=== PATIENT | female | born 1955 | race Caucasian/White ===

== ENCOUNTER 2023-05-11 08:52 | Observation (INO) ==
--- NOTE | 2023-05-03 14:34 | PAT Medication Instructions ---
Medication Instructions Date of Service May 03, 2023 Home Medications atenolol 25 mg tablet 12.5 mg PO QAM bupropion HCl 100 mg tablet 100 mg PO QAM cholecalciferol (vitamin D3) 50 mcg (2,000 unit) capsule (Vitamin D3) 50 mcg PO QAM diclofenac sodium 1 % topical gel 2 g topical QID diclofenac sodium 50 mg tablet,delayed release 50 mg PO Q8H lisinopril 20 mg tablet 20 mg PO QAM mecobalamin (vitamin B12) 500 mcg chewable tablet 500 mcg PO QAM metformin 500 mg tablet 500 mg PO QAM propylene glycol 1 %-glycerin 0.3 % eye drops (Artificial Tears (glycerin-peg)) 1 drp ophthalmic (eye) DAILY PRN Dry Eyes semaglutide 1 mg/dose (4 mg/3 mL) subcutaneous pen injector (Ozempic) 1 mg subcut WK biotin 10,000 mcg capsule 10,000 mcg PO QAM calcium carbonate 600 mg-vitamin D3 10 mcg (400 unit) tablet (Calcium 600 + D(3)) 1 tab PO DAILY ASK your surgeon for instructions diclofenac sodium 1 % topical gel 2 g topical QID diclofenac sodium 50 mg tablet,delayed release 50 mg PO Q8H STOP taking 2 weeks before surgery biotin 10,000 mcg capsule 10,000 mcg PO QAM STOP taking 7 days before surgery semaglutide 1 mg/dose (4 mg/3 mL) subcutaneous pen injector (Ozempic) 1 mg subcut WK (confirmed with patient on 05/03/23 that last dose prior to surgery will be 05/03/23) DO NOT take the morning of surgery cholecalciferol (vitamin D3) 50 mcg (2,000 unit) capsule (Vitamin D3) 50 mcg PO QAM lisinopril 20 mg tablet 20 mg PO QAM mecobalamin (vitamin B12) 500 mcg chewable tablet 500 mcg PO QAM metformin 500 mg tablet 500 mg PO QAM calcium carbonate 600 mg-vitamin D3 10 mcg (400 unit) tablet (Calcium 600 + D(3)) 1 tab PO DAILY Take morning of surgery With a small sip of water, OTHERWISE NOTHING TO EAT OR DRINK AFTER MIDNIGHT: atenolol 25 mg tablet 12.5 mg PO QAM bupropion HCl 100 mg tablet 100 mg PO QAM propylene glycol 1 %-glycerin 0.3 % eye drops (Artificial Tears (glycerin-peg)) 1 drp ophthalmic (eye) DAILY PRN Dry Eyes (if needed) Take evening before surgery propylene glycol 1 %-glycerin 0.3 % eye drops (Artificial Tears (glycerin-peg)) 1 drp ophthalmic (eye) DAILY PRN Dry Eyes (if needed) Other Notes If you have any questions please call us at [phone] or [phone] or [phone] or [phone]
--- NOTE | 2023-05-06 09:16 | Anesthesiology Consultation ---
Date of Service May 06, 2023 Assessment & Plan (1) Encounter for pre-operative examination: Plan - check BSG am DOS. - Ozempic instructions: Patient takes on (Tuesday). Patient informed at PAT visit to stop 7 days prior to surgery- voiced understanding. Instructed last dose will be: (05/04/23). Patient advised to check with prescriber to see if alternative diabetic management changes recommended while holding Ozempic- if so, patient to call back to PAT to update chart and discuss if any further preop medication instructions needed. - Outpatient joint assessment: Patient is currently scheduled for inpatient pathway. If re-evaluated and patient/surgeon requests outpatient pathway, patient is not recommended candidate for outpatient joint program from anesthesia standpoint. Chart Review Chart Review: Acceptable Risk for Surgery and Patient seen in Pre Admission Testing Teaching & Discussion Pre-Anesthesia Teaching/Discussion Notes: Instructed NPO after midnight before surgery, except medications with 15 cc of water. Medication instructions provided according to the PAT guidelines. History Surgery Operation Date: 05/11/23 08:50 Proposed Procedures p Right Total Knee Arthroplasty - Steven Akers MD Height/Weight Height: 5 ft 1 in Weight: 110 kg Allergies Allergy/AdvReac Type Severity Reaction Status Date / Time sulfamethoxazole Allergy Intermediate Rash Verified 05/03/23 13:35 [From Bactrim] trimethoprim [From Bactrim] Allergy Intermediate Rash Verified 05/03/23 13:35 Medications Home Medications Medication Instructions Recorded Confirmed Last Taken atenolol 25 mg tablet 12.5 mg PO QAM 04/28/23 05/03/23 Unknown bupropion HCl 100 mg tablet 100 mg PO QAM 04/28/23 05/03/23 Unknown cholecalciferol (vitamin D3) 50 50 mcg PO QAM 04/28/23 05/03/23 Unknown mcg (2,000 unit) capsule (Vitamin D3) diclofenac sodium 1 % topical gel 2 g topical QID 04/28/23 05/03/23 Unknown diclofenac sodium 50 mg 50 mg PO Q8H 04/28/23 05/03/23 Unknown tablet,delayed release lisinopril 20 mg tablet 20 mg PO QAM 04/28/23 05/03/23 Unknown mecobalamin (vitamin B12) 500 mcg 500 mcg PO QAM 04/28/23 05/03/23 Unknown chewable tablet metformin 500 mg tablet 500 mg PO QAM 04/28/23 05/03/23 Unknown propylene glycol 1 %-glycerin 0.3 1 drp ophthalmic (eye) DAILY PRN 04/28/23 05/03/23 Unknown % eye drops (Artificial Tears Dry Eyes (glycerin-peg)) semaglutide 1 mg/dose (4 mg/3 mL) 1 mg subcut WK 04/28/23 05/03/23 Unknown subcutaneous pen injector (Ozempic) biotin 10,000 mcg capsule 10,000 mcg PO QAM 05/03/23 05/03/23 Unknown calcium carbonate 600 mg-vitamin 1 tab PO DAILY 05/03/23 05/03/23 Unknown D3 10 mcg (400 unit) tablet (Calcium 600 + D(3)) amino acids (Amino Acid capsule) cap PO 05/06/23 Unknown Past Medical History Medical History (Updated 05/06/23 @ 09:28 by Gisselle Rodriguez PA-C) CKD (chronic kidney disease) stage 3, GFR 30-59 ml/min Cellulitis hx of in legs and venous ulcer to right leg, 2019 > resolved > wears compression stockings now Urinary incontinence just on occasion when standing Depression Cardiac murmur as child History of COVID-15 Feb 2022 > not hospitalized > intermittent residual olfactory nerve of smelling smoke-denies recent episode-follows with PCP Hypertension controlled, stable per pt Diabetes NIDDM Patient denies h/o stroke, seizures, heart attack, heart failure, blood clots/DVTs or blood transfusions. Exercise / Class Metabolic Activity II 4-5 Yardwork/Stairs/Walk up hill (denies chest discomfort or shortness of breath with 1 FOS) Past Family History Family History (Updated 05/06/23 @ 09:30 by Gisselle Rodriguez PA-C) Grandmother (Maternal) Deep vein thrombosis DVTs Coronary heart disease mitral valve replacement Brother Aortic valve disorder suspected aortic stenosis per pt, currently undergoing aortic valve replacement Past Surgical History Surgical History Hx of hernia repair with mesh Hx of bilateral oophorectomy History of cholecystectomy H/O gastric bypass 2006 History of tooth extraction History of tonsillectomy Past Anesthesia History No Hx of Anesthesia Complications and No Family Hx of Anesthesia Complications History of PONV No Hx of PONV and No Hx of Motion Sickness Social History Smoking Status: Never smoker Do You Dip or Chew Tobacco: No Hx Alcohol Use: Yes alcohol intake frequency: holidays/special occasions only Hx Substance Use: No substance use type: does not use Review of Systems Snoring, denies witnessed apneas. Patient denies chest pain, shortness of breath, dyspnea on exertion, reflux, fever, chills, cough, wheezing, or palpitations. Physical Exam Vital Signs Vitals BP 123/75 P 57 TEMP 97.8 SP02 97% on RA RESP 18 Physical Patient resting comfortably in chair in no acute distress, alert and oriented, responding appropriately throughout visit Full cervical extension range of motion without pain TMD 3.5 finger breadths Mallampati Score 2 Dentition: several caps and permanent bridge, denies chipped or loose teeth, or implants Lungs: normal respiratory effort. Good air movement, clear throughout to auscultation, no adventitious breath sounds Cardiac: regular rate and rhythm, no murmurs noted Carotid arteries: negative bruit bilat Lab Results Anesthesia Preop Results Results Anesthesia Widget: WBC 8.66 K/ul (4.8-10.8) 05/06/23 Hgb 13.7 g/dl (12.0-16.0) 05/06/23 Hct 43.7 % (37.0-47.0) 05/06/23 Plt 453 K/uL (130-400) H 05/06/23 Na 142 mmol/L (136-145) 05/06/23 K 4.4 mmol/L (3.5-5.1) 05/06/23 Cl 108 mmol/L (98-107) H 05/06/23 CO2 26 mmol/L (21-32) 05/06/23 BUN 27 mg/dl (6-23) H 05/06/23 Creat 1.06 mg/dl (0.6-1.2) 05/06/23 Glucose Level 101 mg/dl (70-99(Fasting)) H 05/06/23 PT 11.4 Seconds (9.0-12.0) 05/06/23 PTT 30 Seconds (21-31) 05/06/23 INR 1.0 (0.9-1.1) 05/06/23 HA1c 5.8 % (4.5-5.6) H 05/06/23 Blood Type O Positive 05/06/23 Antibody Screen NEGATIVE 05/06/23 Testing Electrocardiogram Date: 05/06/23 Sinus rhythm with 1st degree AV block, rate 68 bpm Inferior infarct, age undetermined Poor R wave progression, consider anterior ME vs lead placement vs LVH Chest X-Ray Date: 05/06/23 No acute process.
[~2023-05-11 08:52] MED LIST: ACETAMINOPHEN 500 MG TAB PO SCH; BUPIVACAINE 0.25% PF 30 ML VIAL ONE; BUPIVACAINE 0.5 % 5 MG/1 ML PF 10ML VIAL ONE; BUPIVACAINE LIPOSOME/PF 266 MG, BUPIVACAINE/EPINEPHRINE 50 ML, SODIUM CHLORIDE 0.9% PF ... INFIL SCH; CeleBREX 200 MG CAP PO SCH; FAMOTIDINE 20 MG TAB PO SCH; LR 500ML BOLUS, THEN 15ML/HR IV SCH; LR 60ML/HR IV SCH; METOCLOPRAMIDE HCL 10 MG TABLET PO SCH; Scopolamine 1 MG TDSY TD SCH; TRANEXAMIC ACID 1,000 MG **IV Intra-op IV SCH; ceFAZolin 2000MG 2,000 MG/15 ML SYR IV SCH
--- NOTE | 2023-05-11 09:00 | History & Physical Bridge Note ---
Date of Service May 11, 2023 History & Physical Bridge Note I have examined the patient, reviewed the History & Physical and in the interval since the performance of the History & Physical I have noted the following changes of clinical significance: no changes noted
[2023-05-11] MEDS ORDERED: ATROPINE SULFATE 0.1 MG/ML 10ML SYR IV PRN (09:58)
[2023-05-11] MEDS ORDERED: ePHEDrine sulfate 50 MG/ML AMP IV PRN (09:58)
[2023-05-11] MEDS ORDERED: PROMETHAZINE HCL 6.25 MG in SODIUM CHLORIDE 0.9% 50 ML IV PRN (09:58)
[2023-05-11] MEDS ORDERED: ONDANSETRON INJ 2 MG/ML 2 ML VIAL IV PRN ×2 (09:58→14:26)
[2023-05-11] MEDS ORDERED: fentaNYL citrate PF 100 MCG/2 ML VIAL IV PRN (09:58)
[2023-05-11] MEDS ORDERED: PROPOFOL IV EMULSION 10 MG/ML 20 ML VIAL IV ONE ×2 (10:11→12:31)
[2023-05-11] MEDS ORDERED: fentaNYL citrate PF 100 MCG/2 ML VIAL ONE (10:11)
[2023-05-11] MEDS ORDERED: MIDAZOLAM HCL 1 MG/ML 2ML VIAL ONE (10:11)
[2023-05-11] MEDS ORDERED: BUPIVACAINE/EPINEPHRINE 0.25% 1:200,000 30 ML VIAL ONE (11:06)
[2023-05-11] MEDS ORDERED: VANCOMYCIN HCL 1000MG/20ML VIAL ONE (11:07)
[2023-05-11] MEDS ORDERED: BUPIVACAINE LIPOSOME 1.3% 266 MG/20 ML VIAL ONE (11:07)
[2023-05-11] MEDS ORDERED: SODIUM CHLORIDE 0.9% PF 50 ML VIAL ONE (11:07)
[2023-05-11] MEDS ORDERED: ONDANSETRON INJ 2 MG/ML 2 ML VIAL ONE (11:28)
[2023-05-11] MEDS ORDERED: PHENYLEPHRINE 100MCG/ML 10ML SYR IV ONE (11:42)
--- NOTE | 2023-05-11 13:09 | Operative Report ---
PG Post Operative Report Pre & Post Diagnosis Operation Date: 05/11/23 10:40 Pre-Op Diagnosis: Right Knee Degenerative Joint Disease Post-Op Diagnosis: Right Knee Degenerative Joint Disease I identified the patient and participated in the time-out.: Yes Procedure Operation Date: 05/11/23 10:40 Actual Procedures p Right Total Knee Arthroplasty(Right) - Steven Akers MD Surgeon Steven Akers MD Armature Winder Repairer Evens Puente PA-C Estimated Blood Loss 50 Findings Consistent with Post-Op Diagnosis Operative findings were advanced right knee DJD. She had pretty extensive grade 4 [id number] disease in all 3 compartments most severe in the medial side. Large bone spurs prickly around her patella and several loose bodies. Moderate- sized joint effusion. Specimens Right knee sent for pathology. Anesthesia Type Spinal MAC Complications none Disposition Accompanied Patient To Recovery: No Indications Patient is a 68-year-old female who said a long history of bilateral knee pain discomfort right side greater than left patient been through extensive conservative treatment which became less successful over time. She become more debilitated by her knee pain and limited walking ability. She is morbidly obese and trying to lose weight but having difficulty due to her limited mobility. She elected proceed with total knee arthroplasty. Description of Procedure Operative implants consist of: 1 Biomet Vanguard size 60 right posterior stabilized femoral component. 2. Biomet size 63 tibial tray. 3. 10 mm post stabilized polyethylene insert. 4. 31 x 8 all poly patella. The patient was taken the operating, identified, and placed on the operating table in the supine position. All contact areas were appropriately padded. IV antibiotics tried by anesthesia team. A spinal anesthetic and abductor canal block had been provided in the holding area. A Cr catheter was placed in sterile fashion. Right Tetrick was then placed in the right lower extremities then prepped and draped in usual sterile fashion. The right leg was elevated and exsanguinated with use of an Esmarch and the turn was placed at 3 mmHg. An anterior approach of the right knee was then performed through a longitudinal incision centered over the patella. Sharp dissection was carried through subcutaneous tissue down the extensor mechanism. A medial parapatellar arthrotomy incision was made. Some subperiosteal dissection was carried out medially. The fat pad was dissected from Neath patella tendon. Lateral patellofemoral ligament was released. Patella subluxated laterally. Upon doing this the patella was quite large with multiple extra osteophytes. Therefore we had decided to elect to cut the patella first. I did remove the surrounding osteophytes. Patella thickness measured 20 mm in thickness was cut down to 12. I remove the lateral osteophyte. I did not prepared the patella until the end of the case. The patella was then subluxated laterally. The lateral patellofemoral ligament was released. The ACL and PCL released from distal femur and the tibia subluxated anteriorly. The external tibial alignment jig was then placed the interface the tibia and adjusted 14 mm medially. Proximal tibial cut was made to move out a millimeter bone at most from the most deficient aspect the medial side. Some osteophytes taken off medially. The tibia was sized to a size 63. Attention drawn the femur. The distal femur then with a sharp drill. Intramedullary canal was suction. Right 5 degree valgus cutting guide was placed. This femoral cutting block was pinned in place. Distal femoral cut was made to take an additional 3 mm of bone off distal femur. The femur was then sized to a size 60. The AP cutting block was pinned parallel to the epicondylar axis which was 3 degrees of external rotation. The anterior cut, anterior chamfer, posterior cut, posterior chamfer cuts were made. The box cutting guide was placed in just slight lateral and the box cut was made. The knee was flexed with the remnants of the medial and lateral menisci were excised. The osteophyte taken off the posterior aspect the femur. Trial femoral component was placed through the tibial tray was pinned Viviana external rotation and the drill and stem punch were used to create defect in proximal tibia for the tibial tray. Knee was then trialed and the 10 mm in sert fit most appropriately. Attention drawn the patella. We did had already cut the patella. We sized it to a size 31. The locals were drilled for 31 patella. The patella button was placed. Knee was taken through range of motion patella tracked nicely with no thumbs test. Attention drawn to place the permanent components. Nupathe all trial components were removed. Bone plug was placed in the distal femur limit blood loss. Double batch Palacos G cement was mixed. BiomTuckerNuckguard size 60 right posterior stabilized femoral component, size 63 tibial tray, 10 mm post stabilized polyethylene insert, and a 31 x 8 all poly patella then cemented in place. Knee was brought out in full extension till cement hardened. Final cement check was then performed. Pericapsular tissues were injected with total of 100 cc of combination of 20 of Exparel, 30 cc normal saline, 50 cc of quarter percent Marcaine with epinephrine. Patient did receive 1 g tranexamic acid. The tourniquet was let d own for final tourniquet time 59 minutes. Hemostasis assured use electrocautery. Extensor Meclomen closed with combination of 1 PDS suture and #1 Vicryl suture in a ccygac-[id number] fashion. Extensor mechanism checked found to be intact with subcutaneous tissues then closed with 2 Dexon suture in a buried interrupted fashion skin was closed skin kaiser. Leg was then cleaned and dried and sterile dressed with Xeroform, 4 fours, sterile cast padding, Keron bandage were applied. Patient then transferred to the recovery room in stable condition. Patient tolerated procedure well and there are no complications. Evens Puente, my physician political science research assistant, was present for the entire procedure. His assistance was essential and required for appropriate patient positioning, prepping and draping, surgical exposure, performing the technical details of the operation, placement the implants, closure of the wound, and placement of the sterile bandage. I attest to the content of the Intraoperative Record and any orders documented therein. Any exceptions are noted below.
--- NOTE | 2023-05-11 13:40 | XRay Report ---
TWO VIEWS RIGHT KNEE CLINICAL HISTORY: Postoperative examination. FINDINGS: AP and crosstable lateral portable views of the right knee are obtained. A right knee arthr oplasty is in near anatomic alignment. There has been undersurface remodeling of the patella. No acut e fracture is seen. There are expected postoperative changes around the knee including skin clips, so ft tissue edema, and subcutaneous gas. IMPRESSION: Expected postoperative changes status post right knee arthroplasty. No acute fracture is seen. ACT 112: Negative or not required by law. Electronically signed by: Gurinder Pinon M.D. 05/11/2023 1:39 PM
[2023-05-11] MEDS ORDERED: NALOXONE HCL 0.4 MG/1 ML VIAL/CARP IV PRN (14:26)
[2023-05-11] MEDS ORDERED: GLUCOSE 40% GEL 15 GM TUBE PO PRN (14:26)
[2023-05-11] MEDS ORDERED: GLUCOSE 10 TAB/TUBE PO PRN (14:26)
[2023-05-11] MEDS ORDERED: DEXTROSE 50% 50 ML SYRINGE IV PRN (14:26)
[2023-05-11] MEDS ORDERED: METOCLOPRAMIDE HCL INJ 5 MG/ML 2 ML VIAL IV PRN (14:26)
[2023-05-11] MEDS ORDERED: bisacodyL 10 MG SUPP PR PRN (14:26)
[2023-05-11] MEDS ORDERED: ONDANSETRON 4 MG OD TAB PO PRN (14:26)
[2023-05-11] MEDS ORDERED: ALUMINUM/MAGNESIUM SUSP 30 ML UDC PO PRN (14:26)
[2023-05-11] MEDS ORDERED: MAGNESIUM HYDROXIDE SUSP 30 ML UDC PO PRN (14:26)
[2023-05-11] MEDS ORDERED: CARBOHYDRATES FOR HYPOGLYCEMIA PO PRN (14:26)
[2023-05-11] MEDS ORDERED: PHARMACY GLYCEMIC MGMT CONSULT PRN (14:26)
[2023-05-11] MEDS ORDERED: GLUCAGON FOR INJ 1 MG VIAL SQ PRN (14:26)
[2023-05-11] MEDS ORDERED: HYDROmorphone INJ 0.5 MG/0.5 ML SYR IV PRN (14:26)
[2023-05-11] MEDS ORDERED: ARTIFICIAL TEARS OP PRN (14:45)
[2023-05-11] MEDS: SODIUM CHLORIDE 0.9% 1,000 ML IV SCH (15:15)
--- NOTE | 2023-05-11 15:20 | Pharmacy Report ---
Pharmacy Glycemic Short Note 2 - Date of Service May 11, 2023 - Glycemic Short BSG Results (Last 24 hours): 05/11/23 05/11/23 09:26 13:08 POC Glucose 107 H 97 OUTPATIENT ANTIDIABETIC REGIMEN: * Ozempic 1mg SC QWK (last dose 05/04) * HbA1c 5.8% (05/06/23) ASSESSMENT: * Aspen is a 68 YOF admitted status post right total knee arthroplasty with a history of Type II diabetes mellitus. Pharmacy has been consulted to assist with glycemic management while inpatient. * Fasting BSG slightly below goal range this AM, will hold off on basal insulin at this point. * She does not appear to have received steroids preoperatively, but has 8mg of oral dexamethasone ordered for tomorrow AM. * Will initiate Novolog with a loose correction factor at this time, since BSG dropped from fasting this AM. May need a carbohydrate ratio with steroids tomorrow AM PLAN FOR INPATIENT GLYCEMIC CONTROL: * Hold outpatient diabetes medications * Basal insulin * Reasses in AM * Bolus insulin * NovoLog per scale ACHS or Q6hrs while NPO * Goal Range: Low 110 mg/dL - High 140 mg/dL * Correction Factor: 50 mg/dL/unit * Nutritional / Prandial insulin per carb ratio of 1 unit per NONE grams CHO consumed
[2023-05-11] MEDS: KETOROLAC TROMETHAMINE 15 MG/ML VIAL IV SCH ×2 (15:29→23:23)
[2023-05-11] MEDS: ACETAMINOPHEN 500 MG TAB PO SCH ×2 (15:29→21:46)
[2023-05-11] MEDS: Scopolamine CHECK PATCH PLACEMENT SCH (15:31)
--- NOTE | 2023-05-11 15:49 | Anesthesiology Progress Note ---
Date of Service May 11, 2023 Anesthesia Post Procedure Vital Signs Vital Signs: Temp Pulse Pulse Resp BP Pulse Ox O2 Del Method 05/11/23 15:25 36.3 C L 58 L 16 101/62 94 Room Air 05/11/23 14:55 36.4 C L 73 16 104/67 98 Room Air 05/11/23 14:25 36.4 C L 71 16 111/65 97 Room Air 05/11/23 14:15 75 18 122/63 95 Room Air 05/11/23 14:00 62 16 116/56 L 95 Room Air 05/11/23 13:45 36.4 C L 75 18 123/53 L 95 Room Air 05/11/23 13:35 63 14 117/53 L 99 Oxymask 05/11/23 13:25 73 18 120/58 L 97 Oxymask 05/11/23 13:15 69 20 116/49 L 98 Oxymask 05/11/23 13:05 36.1 C L 78 16 117/62 100 Oxymask 05/11/23 09:32 36.6 C 80 80 H 150/78 H 98 Room Air O2 Flow Rate 05/11/23 15:25 05/11/23 14:55 05/11/23 14:25 05/11/23 14:15 05/11/23 14:00 05/11/23 13:45 05/11/23 13:35 4 05/11/23 13:25 4 05/11/23 13:15 4 05/11/23 13:05 6 05/11/23 09:32 Pain Intensity Generalized: Pain Intensity: 8 Transfer of Care Handoff Completed per policy Notes Mental Status: alert / awake / arousable and participated in evaluation Patient Amnestic to Procedure: Yes Nausea / Vomiting: adequately controlled Pain: adequately controlled Airway Patency, RR, SpO2: stable & adequate BP & HR: stable & adequate Hydration State: stable & adequate Neuraxial Anesthesia: was administered and sensory block is resolving Anesthetic Complications: no major complications apparent and Pt Satisfied with anesthetic care
[2023-05-11] MEDS: ASCORBIC ACID 500 MG TAB PO SCH (17:27)
[2023-05-11] MEDS: INSULIN ASPART PER UNIT CHARGE SC SCH ×2 (17:29→21:45)
[2023-05-11] MEDS: ceFAZolin 2000MG 2,000 MG/15 ML SYR IV SCH (18:33)
[2023-05-11] MEDS: oxyCODONE HCL IR 5 MG TAB (IMMEDIATE RELEASE) PO PRN (18:59)
[2023-05-11] MEDS ORDERED: TRANEXAMIC ACID / 0.7% NACL 1,000 MG/100 ML BAG IV SCH (19:15)
[2023-05-11] MEDS ORDERED: SENNA 8.6 MG TAB PO SCH ×2 (21:00)
[2023-05-11] MEDS: DOCUSATE SODIUM 100 MG CAP PO SCH (21:47)
[2023-05-11] MEDS: ASPIRIN 81 MG ECTAB PO SCH (21:47)
[2023-05-12] MEDS: Scopolamine CHECK PATCH PLACEMENT SCH ×2 (01:41→08:28)
[2023-05-12] MEDS: SODIUM CHLORIDE 0.9% 1,000 ML IV SCH (01:42)
[2023-05-12] MEDS: KETOROLAC TROMETHAMINE 15 MG/ML VIAL IV SCH (04:52)
[2023-05-12] MEDS: ceFAZolin 2000MG 2,000 MG/15 ML SYR IV SCH (04:53)
[2023-05-12] MEDS: oxyCODONE HCL IR 5 MG TAB (IMMEDIATE RELEASE) PO PRN ×2 (05:06→10:52)
[2023-05-12 07:15] LABS: Hematocrit (blood only) 34.8 % (37.0-47.0); Hemoglobin 11.1 g/dl (12.0-16.0); Mean Corpuscular Hemoglobin 27.8 pg (25.0-34.0); Mean Corpuscular Hgb Conc 31.9 g/dL (32.0-36.0); Mean Corpuscular Volume 87.2 fL (80.0-100.0); Mean Platelet Volume 10.4 fL (9.4-12.4); Platelet Count 392 K/uL (130-400); RDW Coefficient of Variation 14.9 % (11.5-14.5); RDW Standard Deviation 47.9 fL (36.4-46.3); Red Blood Count 3.99 M/uL (4.20-5.40); White Blood Count 7.59 K/ul (4.8-10.8)
[2023-05-12 07:21] LABS: BUN Creatinine Ratio 23.6 (10-20); Calcium 7.9 mg/dl (8.6-10.3); Creatinine Clr Calc Pharmacy 55.5 ml/min; Est GFR (African American) 59.3 ml/min; Est GFR (Non-African American) 51.2 ml/min; Potassium 4.2 mmol/L (3.5-5.1)
--- NOTE | 2023-05-12 07:42 | Surgery Progress Note ---
Date of Service May 12, 2023 Assessment & Plan (1) Status post right knee replacement: Plan: 68-year-old female postop day 1 from right knee replacement doing pretty well. Pain is controlled. She is neurologically intact. Plan: 1. DVT prophylaxis including thigh-high teds, SCDs, aspirin twice a day. 2. PT/OT. Weight-bear as tolerated right total knee protocol. 3. Pain control doing pretty well with current pain control and pain medicines. 4. Disposition she is hoping to be discharged home with some home health. She is got 3 granddaughters that will assist in her care. Will see how she does in therapy today. Admission and Anticipated Discharge Date Admission Date: May 11, 2023 Subjective 68-year-old female postop day 1 from right knee replacement. She is doing pretty well. Pain is controlled. Had a reasonable night. She is hoping to go home today. No chest pain or shortness of breath. Not feeling dizzy or lightheaded. Physical Exam Physical Exam: Physical examination was a pleasant elderly female. She is lying in bed looks pretty comfortable. Examination of the right leg reveals dressing clean dry and intact. She can dorsiflex and plantarflex her foot appropriately. She is neurologically intact. She can do a straight leg raise. Respiratory: normal respiratory effort, lungs clear to auscultation Cardiovascular: RRR, no murmur, no edema Gastrointestinal (Abdomen): normal bowel sounds, soft, nontender, no hepatosplenomegaly Results & Data Vital Signs (Past 12 Hours) Vital Signs Temp Pulse Resp BP BP Pulse Ox O2 Del Method 05/12/23 07:09 36.6 C 76 18 132/70 94 Room Air 05/12/23 02:30 36.6 C 75 16 106/66 94 Room Air 05/11/23 23:22 36.8 C 74 16 109/64 93 Room Air Laboratory Results Hemoglobin is 11.1. Hematocrit 34.8. Electrolytes are stable. PG Care Time/CCT Total # of Minutes Spent Total Time Spent with Patient: Total time spent is greater than 50% in coordination of care (as documented) at patient's floor/unit and/or counseling patient: Coding Level of Care Code 77376 Post Operative Follow-Up Diagnoses Status post right knee replacement Z96.651
[2023-05-12] MEDS ORDERED: dexAMETHasone 4 MG TAB PO SCH (08:00)
[2023-05-12] MEDS: INSULIN ASPART PER UNIT CHARGE SC SCH (08:15)
[2023-05-12] MEDS: ASCORBIC ACID 500 MG TAB PO SCH (08:18)
[2023-05-12] MEDS: ACETAMINOPHEN 500 MG TAB PO SCH (08:19)
[2023-05-12] MEDS: ASPIRIN 81 MG ECTAB PO SCH (08:19)
[2023-05-12] MEDS: DOCUSATE SODIUM 100 MG CAP PO SCH (08:21)
[2023-05-12] MEDS ORDERED: CYANOCOBALAMIN (B-12) 500 MCG TABLET PO SCH (09:00)
[2023-05-12] MEDS ORDERED: CALCIUM 600MG + VIT D 400 IU TAB PO SCH (09:00)
[2023-05-12] MEDS ORDERED: lisinopril 20 MG TAB PO SCH (09:00)
[2023-05-12] MEDS ORDERED: CHOLECALCIFEROL 1,000 UNITS 25 MCG TAB PO SCH (09:00)
[2023-05-12] MEDS ORDERED: buPROPion SR 100 MG TABCR PO SCH (09:00)
[2023-05-12] MEDS ORDERED: MULTIVITAMIN TAB PO SCH (09:00)
[2023-05-12] MEDS ORDERED: ATENOLOL 25 MG TABLET PO SCH (09:00)
--- NOTE | 2023-05-12 09:27 | Discharge Summary ---
Date of Service May 12, 2023 Principal Diagnosis Same as "Discharge Diagnosis" noted below under Discharge Instructions. Discharge Exam Physical examination was a pleasant elderly female. She is lying in bed looks pretty comfortable. Examination of the right leg reveals dressing clean dry and intact. She can dorsiflex and plantarflex her foot appropriately. She is neurologically intact. She can do a straight leg raise. Discharge Data Procedures Performed Operation Date: 05/11/23 10:40 Actual Procedures p Right Total Knee Arthroplasty(Right) - Steven Akers MD Ordered Studies 05/11/23 05:00 US - OR guided needle placemen Routine Hospital Course (1) Status post right knee replacement: On May 11, 2023 Aspen arrived at [facility] and underwent a right total knee arthroplasty without complications. She had a spinal anesthetic. Postoperatively, she was started on aspirin for DVT prophylaxis and transferred to the general orthopedic floor in stable condition. Her hospital course was uneventful. On postoperative day #1, her vital signs were stable and her pain was well-controlled. She participated well with physical therapy doing ambulation and range of motion exercises. She was then discharged home in stable condition. She will follow-up in [address] Akers for postoperative care. PG Care Time/CCT Total # of Minutes Spent Total Time Spent with Patient: Total time spent is greater than 50% in coordination of care (as documented) at patient's floor/unit and/or counseling patient: Discharge Plan Discharge Items Patient Disposition: Home - Home Health Services Reason For Visit: Right Knee Degenerative Joint Disease Discharge Diagnosis: Right Knee Replacement Activity: Per Instructions section Weightbearing: Full weightbearing Non-emergency contact: Surgeon Call non-emergency contact if: you have any medication questions Follow-up/Referrals: Bob Chatman DO [Primary Care Provider] - Diet: Carb Consistent or DM2 Addtl Attending Provider Instructions: ACTIVITY RECOMMENDATIONS: Physical Therapy: * You will go to physical therapy three times each week for four to six weeks after your surgery in order to regain your knee range of motion and to retrain your knee to work properly. * It is just as important to make sure you are getting your knee perfectly straight as it is to regain your knee bend. * Taking a pain pill an hour before therapy can help you have a more productive and comfortable therapy session. Home Exercise: * You were shown a series of exercises (heel props, heel slides, etc.) in the hospital. Do these exercises three to four times each day including the exercises you were shown in physical therapy. Walking: * Get up and walk several times each day. For the first four weeks, try not to stand or walk for more than one hour at a time. If you do stand or walk for more than one hour, you will not hurt anything, but your knee and leg will likely swell. * As you feel comfortable, you may change from the walker or crutches to a cane and then to independent walking. MEDICATIONS: New Medicine: * You will likely be taking one or more of these medications: 1. Oxycodone - A quick and shorter-acting pain medication. Take one to two tablets every six hours to lessen your pain. 2. Aspirin - Thins your blood to lessen the chance of forming a blood clot. * The most common side effects of pain medicine and iron are nausea and constipation. If nausea or constipation is too much of a problem or if you have any questions about your new medicines or doses, call [facility] at . We will try to help you manage these issues. "VERY IMPORTANT TO READ AND REVIEW" Pain: * The immediate post-operative period after knee replacement surgery is often quite painful. * You are given a prescription for pain medicine. You should take it, as directed, when you need it, especially before physical therapy and before going to bed. Pain that interferes with sleep is very common and can last several months. * You will likely need pain medicine for the first four to six weeks. It will not stop all of the pain. The pain will lessen and as you feel better, you may change to milder pain medicine such as Tylenol. * The most common side effects of pain medicine are nausea and constipation, so don't take more than you need. SPECIAL CARE INSTRUCTIONS: TEDs/Elastic Stockings: * The white elastic stockings help limit swelling and prevent blood clots from forming in your legs. The more you wear them, the more they work. * Wear them for six weeks after knee replacement surgery and four weeks after partial knee replacement. Incision Site Care: * Remove dressing postoperative day 2 and then shower. Keep direct shower pressure off the incision site. * After showering, cover kaiser with dry gauze and change daily or more frequently if the dressing is getting saturated with drainage. * Use the KOBI stockings to hold dressing in place. DO NOT apply tape on the skin. * May completely stop using bandage if wound is dry and no drainage * Kaiser are removed between 2 and 3 weeks post-op. If your follow-up appointment is made before 2 weeks, please have your appointment re- scheduled. It is too early to remove the kaiser. Prevention of Infection: * Take antibiotics one hour before any dental cleaning, dental work, urological procedure, gastrointestinal procedure or any invasive surgery in order to prevent your new joint from getting infected. * You may get the antibiotics from the doctor performing the procedure or you may call our office at [phone] before and we will call in a prescription to the pharmacy of your choice. Things to Watch For: * Drainage from the incision site that occurs more than one week after your surgery. * Severely increased knee/leg pain or swelling. * Increased redness at the incision site. * Fever above 102 degrees Fahrenheit. * Unusual chest pain or shortness of breath. * Unusual pain or burning with urination. Call [facility] at [phone] with any of the above problems or if you have any questions about your medicines or recovery. FOLLOW UP VISIT: Make an appointment to see your doctor for approximately two weeks after surgery for a progress check and staple removal by calling the office at [phone]. Pending Studies at Discharge: No Stand-Alone Forms: My [facility], Smoking Cessation Medications and DC Order Prescriptions: Continued oxycodone 5 mg tablet 5 - 10 mg PO Q6 PRN (Reason: pain) Qty: 40 0RF Rx Instructions: Take as needed for pain ondansetron 4 mg tablet,disintegrating 4 mg PO Q8 PRN (Reason: nausea) Qty: 20 1RF Rx Instructions: Take as needed for nausea ketorolac 10 mg tablet 10 mg PO Q8H 5 Days Qty: 15 0RF Rx Instructions: Take 3 times per day with food for 5 days to lessen pain and swelling. sennosides [Senokot] 8.6 mg tablet 8.6 mg PO BID 14 Days Qty: 28 0RF Rx Instructions: Take two times a day to prevent/treat constipation acetaminophen [Tylenol Extra Strength] 500 mg tablet 1,000 mg PO TID 30 Days Qty: 180 0RF Rx Instructions: Take 3 times per day to lessen pain. aspirin [Mariella Low Dose Aspirin] 81 mg tablet,delayed release (DR/EC) 81 mg PO BID 45 Days Qty: 90 0RF Rx Instructions: Take to prevent blood clots. cefadroxil 500 mg capsule 500 mg PO BID 7 Days Qty: 14 0RF Rx Instructions: Take 1 cap twice a day to prevent infection Ozempic 1 mg/dose (4 mg/3 mL) pen injector 1 mg subcut WK Patient Comments: takes on wednesdays > last dose 05/03/23 atenolol 25 mg tablet 12.5 mg PO QAM lisinopril 20 mg tablet 20 mg PO QAM metformin 500 mg tablet 500 mg PO QAM cholecalciferol (vitamin D3) [Vitamin D3] 50 mcg (2,000 unit) capsule 50 mcg PO QAM mecobalamin (vitamin B12) 500 mcg tablet,chewable 500 mcg PO QAM diclofenac sodium 1 % gel 2 g topical QID Rx Instructions: apply to single elbow, wrist or hand; for hand includes palm/fingers/back of hand bupropion HCl 100 mg tablet 100 mg PO QAM Artificial Tears(glycerin-peg) 1-0.3 % drops 1 drp ophthalmic (eye) DAILY PRN (Reason: Dry Eyes) calcium carbonate-vitamin D3 [Calcium 600 + D(3)] 600 mg-10 mcg (400 unit) Tablet 1 tab PO DAILY biotin 10,000 mcg Capsule 10,000 mcg PO QAM Amino Acid Capsule 1 cap PO Discontinued diclofenac sodium 50 mg tablet,delayed release (DR/EC) 50 mg PO Q8H Patient Comments: last dose 05/01/23 Admission Data Admit Date/Time: 05/11/23 13:06 Attending Provider: Steven Akers Admit Provider: Steven Akers Primary Care Provider: Bob Chatman V. Other Providers: [facility]
--- OUTSIDE RECORDS SUMMARY | 2023-05-13 00:26 | External Medical Summary | Summary of Care ---
Author Name Unknown Organization [facility] Address [address] [facility] [place] [address] Phone [phone] Care Team Providers Care Real Estate Listing Consultant Name Role Phone Lurdes Carlisle DO, David Vincent Primary Care Provid er Reason for Visit * Reason Onset Date Comments Health Maintenance 05/12/2023 Encounter Details Date Type Department Care Team (Late st Contact Info) Description 05/12/2023 Telephone [facility] [address] [place] [id number] Bob Chatman Jr., DO [address] [place] [address] Health Maintenance Allergies Active Allergy Reactions Criticality Noted Date Comments Sulfamethoxazole-Trimethoprim Rash Medium 2017 documented as of this encounter (statuses as of 05/12/2023) Medications Medication Sig Dispensed Refills Start Date End Date Status RA CALCIUM CIT-VIT D-3 PETITES 200-250 MG-UNIT PO TABS 2 TABLETS TWICE DAILY 0 07/04/2012 Active VITRON-C 65-125 MG PO TABS 1 tablet daily 0 Active Biotin 5000 MCG Tablet 1 tab daily 0 Active ARTIFICIAL TEARS 0.1-0.3 % ophthalmic solution Instill 1 Drop into eye 3 times a day as needed. 0 Active buPROPion HCl ER (SR) 100 MG Oral Tablet Extended Release 12 Hour (Wellbutrin SR) Take by mouth 1 Tablet in the morning AND 1 Tablet before bedtime. 180 Tablet 3 03/01/2022 Active OneTouch Ultra Blue In Vitro Strip (Glucose Blood)Indications:Ty pe 2 diabetes mellitus without complication, without long-term current use of insulin ([facility]) Check blood sugar once daily for management of type 2 DM (ICD E11.9) 100 Strip 3 06/07/2022 Active Diclofenac Sodium 1 % External Gel (Voltaren) APPLY TOPICALLY TO AFFECTED AREA ONCE FOR 1 DOSE. NEEDED 100 g 5 06/21/2022 Active Vitamin D3 50 MCG (2000 UT) Oral Tablet Chewable Take by mouth. 0 09/24/2022 Activ e B-12 500 MCG Sublingual Tablet Sublingual Place under the tongue. 0 09/24/2022 Active metFORMIN HCl 500 MG Oral Tablet (Glucophage) TAKE 1 TABLET BY MOUTH TWICE A DAY WITH BREAKFAST AND DINNER 180 Tablet 1 12/20/2022 Active Diclofenac Sodium 50 MG Oral Tablet Delayed Release (Voltaren) TAKE 1 TAB BY MOUTH EVERY 8 HOURS NEEDED FOR PAIN, MODERATE OR PAIN, SEVERE. TAKE WITH FOOD 90 Tablet 1 12/27/2022 Active Atenolol 25 MG Oral Tablet (Tenormin)Indication s:Essential (primary) hypertension TAKE 1/2 TABLET BY MOUTH EVERY DAY 45 Tablet 2 02/23/2023 Active Lisinopril 20 MG Oral Tablet (Prinivil) TAKE 1 TABLET BY MOUTH EVERY DAY 90 Tablet 2 02/23/2023 Active Ozempic (1 MG/DOSE) 4 MG/3ML Subcutaneous Solution Pen-injector (Semaglutide (1 MG/DOSE)) Inject 1 mg under the skin once a week. 9 mL 0 03/03/2023 Active documented as of this encounter (statuses as of 05/12/2023) Active Problems Problem Noted Date Diagnosed Date Morbid obesity with BMI of 45.0-49.9, adult 07/29 Chronic kidney disease, stage 3a 11/11/2020 Overview: Per CKD protocol Type 2 diabetes mellitus wit h stage 3a chronic kidney disease and hypertension 10/07/2020 Overview: Per CKD protocol Type 2 diabetes mellitus wit h hemoglobin A1c goal of less than 7.0% 08/17/2017 HTN, goal below 140/90 05/10/2012 Ventral hernia 04/14/2012 Generalized osteoarthritis 04/17/2008 Intestinal postoperative nonabsorption 7 BARRIOS RESEARCH OTHER*[id number] 12/06/2006 ADVANCE DIRECTIVE INFORMATION 01/25/2005 Overview: No, Advance Directive brochure given to patient at prior appointment. Cupping of optic disc 09/14/2002 documented as of this encounter (statuses as of 05/12/2023) Resolved Problems Problem Noted Date Diagnosed Date Resolved Date Type 2 diabetes mellitus wit h diabetic ulcer of right lower leg 08/21/2021 08/24/2022 Type 2 diabetes mellitus wit h stage 3 chronic kidney disease and hypertension 07/20/2019 10/10/19 21 Overview: Per CKD protocol Morbid obesity, unspecified obesity type 11/11/2017 07/18/2018 Morbid obesity, unspecified obesity type 04/20/2017 05/12/2017 Morbid obesity with BMI of 50.0-59.9, adult 02/28/2017 08/24/2022 Overview: Per Obesity protocol #1 - Per Obesity Taxonomy ICD-10 update of inactive term Obesity, morbid (more than 1 00 lbs over ideal weight or BMI > 40) 08/26/2009 03/03/2017 Overview: Per Obesity Taxonomy ICD-10 update of inactive term HTN, goal below 130/80 06/12/200905/10 Myopia 09/14/2002 02/02/2004 Presbyopia 09/14/2002 02/02/2004 Other abnormal glucose 11/11 Overview: DM Resolved after weight loss from gastric bypass surgery HYPERTENSION NOS 04/16/2009 Overview: Modified per HTN protocol #16. Off medicine after gastric bypass Morbid obesity, BMI not known 08/26/2009 Overview: Per Obesity Taxonomy documented as of this encounter (statuses as of 05/12/2023) Immunizations Name Administration Dates Next Due COVID-19 mRNA, LNP-s, No Pre serve, 2-Dose Series ([employer]) 05/20/2021,09/10/2020,08/19/2020 COVID-19, LNP-s, No Preserve , Willie-sucrose, Ages 12+ (Pfizer) 01/19/2022 Covid-19, Mrna, Lnp-s, Pf, B ivalent, 30 Mcg, IM, 12 yrs and above (Pfizer) 08/26/2022 Pneumococcal Conjugate Vacc, 13 Valent (Prevnar) 07/20/2019 Season Influenza, Cell Cultu re, 18+ Yrs, With Preserv (Flucelvax) 05/16/2013 Season Influenza, Quad, PF, Adjuvanted, 65+ Yrs, IM (FLUAD) 08/01/2020 Seasonal Influenza, PF, 6 M & above, IM , (FluLaval or Fluzone) 07/20/2019,07/18/2018,04/20/2017 Seasonal Influenza, Quadriva lent Hd (Fluzone Hd) 03/01/2023,03/16/2022,02/09/2021 Seasonal Influenza, Quadriva lent, No Preserve, IM 04/19/2016,02/24/2015 Seasonal Influenza, Split, I IV3, With Preserve, Inj 05/17/2014,03/30/2012,04/07/2011,2009,04/17/2008,05/05/2006 TDAP (age 10 and older)(Boostrix) 07/18/2018 TDAP (age 11 and older)(Adacel) 01/26/2008 documented as of this encounter Social History Tobacco Use Types Packs/Day Years Used Date Smoking Tobacco: Never Passive Smoke Exposure: Never Smokeless Tobacco: Never Alcohol Use Standard Drinks/Week Comments Yes 0 (1 standard drink = 0.6 oz pur e alcohol) ONCE A YEAR PHQ-2 Answer Date Recorded PHQ Adult Total Score 0 08/24/2022 Hunger Vital Sign Answer Date Recorded Within the past 12 months, y ou worried that your food would run out before you got the money to buy more. Never true 03/01/20 23 Within the past 12 months, t he food you bought just didn't last and you didn't have money to get more. Never true 03/01/2023 Sex and Gender Information Value Date Recorded Sex Assigned at Female 07/20/2019 9:09 AM EST Gender Identity Female 07/20/2019 9:09 AM EST Sexual Orientation Straight 07/20/2019 9: 09 AM EST Job Start Date Occupation Industry Not on file Not on file Not on file documented as of this encounter Miscellaneous Notes * Telephone Encounter - Rita Bello LPN - 05/12/2023 9:07 AM EST Care Gaps Comprehensive Care Outreach Last Office/Telemedicine Visit: 03/01/2023 (in office), Visit date not found (telemedicine) Next Office Visit: 09/02/2023 Hemoglobin AIC Results: Lab Results Component Value Date/Time HEMOGLOBIN A1C - [facility] 6.0 (H) 02/18/2023 09:44 AM HEMOGLOBIN A1C - [facility] 6.0 (H) 08/20/2022 08:32 AM HEMOGLOBIN A1C - [facility] 5.6 03/05/2022 09:21 AM HEMOGLOBIN A1C - [facility] 6.4 (H) 01/28/2020 09:20 AM HEMOGLOBIN A1C - [facility] 6.4 (H) 07/17/2019 09:09 AM HEMOGLOBIN A1C - [facility] 6.2 (H) 01/08/2019 08:45 AM Reviewed Health Maintenance below: Health Maintenance Topic Date Due Colorectal Cancer Screening 05/13/2011 Diabetic Foot Exam 02/24/2023 CKD PHOS USE SMARTSET 85412 03/05/2023 HbA1c 08/19/2023 GFR 08/19/2023 CKD HGB USE SMARTSET 39703 08/21/2023 Albumin/Creatinine Ratio 08/25/2023 Care Gap Outreach Action Taken: Left message documented in this encounter Plan of Treatment Upcoming Encounters Date Type Department Care Team (Late st Contact Info) Description 07/01/2023 8:40 AM EST Office Visit Nutrition & Weight Management, [place] [address] [place] [id number] McSArlene presley PA-C [address] [place] [address] 08/26/2023 8:00 AM EDT Laboratory Laboratory, [place] [address] [place] [address] [place] [phone] [facility] [address] [place] [address] 09/02/2023 8:00 AM EDT Office Visit [facility] [address] [place] [address] Lurdes Carlisle, Bob Cheema, DO [address] [place] [address] Health Maintenance Due Date Last Done Comments Hepatitis C Screening 02/01/1972 Cologuard 1999 Colonoscopy 1999 Sigmoidoscopy 1999 Zoster Vaccines (1 of 2) 02/01/2004 Colorectal Cancer Screening 05/13/2011 Fecal Occult Blood Test 05/13/2011 05/13/20 10, 05/07/2009, 05/03/2008 Hepatitis B (1 of 3 - Risk 3-dose series) 2014 Pneumococcal Vaccine: 65+ Years (3 - PPSV23 or PCV20) 07/20/2020 07/20/2019, 03/20/2002 COVID-19 Vaccine ( season) 2023 08/26/2022, 01/19/2022, 05/20/2021, Additional history exists Diabetic Foot Exam 02/24/2023 02/24/2022, 0 02/09/2021, 01/30/2020, Additional history exists CKD PHOS USE SMARTSET 77541 03/05/2023 03/05/2022, 0 07/30/2020 GFR 08/19/2023 02/18/2023, 07/29, 03/05/2022, Additional history exists HbA1c 08/19/2023 02/18/2023, 07/29, 03/05/2022, Additional history exists CKD HGB USE SMARTSET 19160 08/21/202308/20, 08/14/2021, 07/30/2020, Additional history exists Albumin/Creatinine Ratio 08/25/2023 023, 02/09/2021, 04/14/2011, Additional history exists Depression Screening 08/25/2023 08/24/2022 Mammogram 03/28/2024 03/28/2023, 02/28, 12/03/2019, Additional history exists Diabetic Eye Exam 04/11/2024 04/11/2023, , 09/15/2020, Additional history exists Lipid Panel 02/19/2028 02/18/2023, 07/29, 03/05/2022, Additional history exists DTaP,Tdap,and Td Vaccines (3 - Td or Tdap) 07/18/2028 07/18/2018, 01/26/2008 Influenza Vaccine (FLU shot) Completed 07/2022, 03/16/2022, 02/09/2021, Additional history exists GARDASIL-HPV IMMUNIZATION SERIES Aged Out No longer eligible based on patient's age to complete this topic MENINGOCOCCAL (MENACTRA/MENVEO) Aged Out No longer eligible based on patient's age to complete this topic documented as of this encounter Medical Devices Implanted Type Area Filler Operator Device Identifier Shelf Expiration Date Model / Serial / Lot Mesh C-Qur 10 X 14 Inch [id number] - [id number] [place]ed:[place] 1 [place] [facility] [place] Abdomen [employer] KARMEN 04/28/2014 [id number] / / [id number] 1 Description:Cqur Mesh documented as of this encounter Advance Directives Latest Code Status on File Code Status Date Activated Date Inactivated Comments Full Code 04/13/2012 6:23 PM 04/15/2012 4:31 PM Thi s order reflects the patients wishes and were consensually agreed upon. Code Status History Code Status Date Activated Date Inactivated Comments Full Code 04/13/2012 11:34 AM 04/13/2012 6:23 PM Th is order reflects the patients wishes and were consensually agreed upon. Care Teams Real Estate Listing Consultant Relationship Specialty Start Date End Date Bob Chatman Jr., DO [address] [place] [address] Services [place] [id number] PCP - General Family Medicine 07/18/18 documented as of this encounter
--- OUTSIDE RECORDS SUMMARY | 2023-05-13 00:26 | External Medical Summary | Summary of Care ---
Author Name Unknown Organization [facility] Address [address] [facility] [place] [address] Phone [phone] Care Team Providers Care Calender Wind Up Helper Name Role Phone Lurdes Carlisle DO, David Vincent Primary Care Provid er Reason for Visit * Reason Onset Date Comments Health Maintenance 05/12/2023 Encounter Details Date Type Department Care Team (Late st Contact Info) Description 05/12/2023 Telephone [facility] [address] [place] [phone] Bob Chatman Jr., DO [address] [place] [address] Health Maintenance Allergies Active [...] complication, without long-term current use of insulin ([facility]) Check blood sugar once daily for management [...] 04/17/2008 Intestinal postoperative nonabsorption 7 BARRIOS RESEARCH OTHER*[id number] 12/06/2006 ADVANCE DIRECTIVE INFORMATION 01/25/2005 Overview: No, [...] mRNA, LNP-s, No Pre serve, 2-Dose Series ([employer]) 05/20/2021,09/10/2020,08/19/2020 COVID-19, LNP-s, No Preserve , Willie-sucrose, [...] Encounter - Rita Bello LPN - 05/12/2023 9:05 AM EST Care Gaps Comprehensive Care Outreach [...] Maintenance below: Health Maintenance Topic Date Due Hepatitis C Screening Never done Zoster Vaccines (1 of 2) Never done Colorectal Cancer Screening 05/13/2011 Diabetic Foot Exam 02/24/2023 CKD PHOS USE SMARTSET 86997 03/05/2023 HbA1c 08/19/2023 GFR 08/19/2023 CKD HGB USE SMARTSET 01650 08/21/2023 Albumin/Creatinine Ratio 08/25/2023 Care Gap Outreach Action Taken: Left message documented in this encounter Plan of Treatment Upcoming Encounters Date Type Department Care Team (Late st Contact Info) Description 07/01/2023 8:40 AM EST Office Visit Nutrition & Weight Management, [place] [address] [place] [address] McSheaArlene PA-C [address] [facility] [address] 08/26/2023 8:00 AM EDT Laboratory Laboratory, [place] [address] [place] [address] [facility], Lab [address] [place] [id number] 09/02/2023 8:00 AM EDT Office Visit [facility] [address] [place] [phone] Lurdes Carlisle, Bob Cheema, DO [address] [place] [address] Health Maintenance Due Date Last Done Comments [...] Additional history exists CKD PHOS USE SMARTSET 78761 03/05/2023 03/05/2022, 0 07/30/2020 GFR 08/19/2023 02/18/2023, 07/29, 03/05/2022, Additional history exists HbA1c 08/19/2023 02/18/2023, 07/29, 03/05/2022, Additional history exists CKD HGB USE SMARTSET 70991 08/21/202308/20, 08/14/2021, 07/30/2020, Additional history exists Albumin/Creatinine [...] this encounter Medical Devices Implanted Type Area Network Announcer Device Identifier Shelf Expiration Date Model / Serial / Lot Mesh C-Qur 10 X 14 Inch [id number] - [id number] Implanted:Qty: 1 on 04/13/2012 [place] [facility] [place] Abdomen [employer] KARMEN 04/28/2014 [id number] / / [id number] 1 Description:Cqur Mesh documented as of this [...] and were consensually agreed upon. Care Teams Calender Wind Up Helper Relationship Specialty Start Date End Date Bob Chatman Jr., DO [address] [place] [address] Services [place] [address] PCP - General Family Medicine 07/18/18 documented as of this encounter
== END 2023-05-12 12:07 | disposition home health service (06) ==
LOC: 3W 08:52 → ASU 08:52